=== PATIENT | male | born 1940 | race Caucasian/White ===

== ENCOUNTER → 2019-10-18 | Outpatient (CLI) | payer MEDICARE, BC ==
[~2019-10-18] MED LIST: ACET1TAB55 PO; BENA20TA8 PO; DONE10TA90 PO; FINA5TAB2 PO; JANT1TAB PO; JANT2.5T PO; MELA1TAB15 PO; MEMA10TA19 PO; MYRB50TA PO; PRESCAP PO; VITA400C49 PO; VITAD1000T PO
== END ==
LOC: M LABSMTC 12:24
PROVIDERS: ATTEND Anesthesiology
DX: Z01.818 Encounter for other preprocedural examination (principal); Z11.59 Encounter for screening for other viral diseases
CPT/HCPCS: C9803; U0003

== ENCOUNTER 2019-10-21 11:44 | Day surgery (SDC) | payer MEDICARE ==
[~2019-10-21] VITALS: Ht 188 cm; Wt 72.1 kg
[~2019-10-21 11:44] MED LIST changes: +D31000TA2 PO; +LIDOCAINE 2% 100MG/5ML SDV (FOR ANES.) As Ordered ONE; +NS 1,000 ML IV ONE; -VITAD1000T PO; +propofoL 200 MG/20 ML VIAL As Ordered ONE
--- NOTE | 2019-10-21 13:06 | ROOR ---
Patient Name: Bryson Hart Procedure Date: 10/21/2019 12:17 PM Date of : 1940 Age: 79 Room: [facility] Gender: Male Note Status: Finalized Procedure: Upper GI endoscopy Indications: Weight loss Providers: Kirby Pelaez MD Referring MD: GARO ZAYAS DO Requesting Provider: Medicines: Monitored Anesthesia Care Complications: No immediate complications. Procedure: Pre-Anesthesia Assessment: - Prior to the procedure, a History and Physical was performed, and patient medications and allergies were reviewed. The patient is competent. The risks and benefits of the procedure and the sedation options and risks were discussed with the patient. All questions were answered and informed consent was obtained. Patient identification and proposed procedure were verified by the physician, the nurse and the anesthesiologist in the procedure room. Mental Status Examination: alert and oriented. Airway Examination: normal oropharyngeal airway and neck mobility. Respiratory Examination: clear to auscultation. CV Examination: normal. Prophylactic Antibiotics: The patient does not require prophylactic antibiotics. Prior Anticoagulants: The patient has taken Coumadin (warfarin), last dose was 5 days prior to procedure. ASA Grade Assessment: II - A patient with mild systemic disease. After reviewing the risks and benefits, the patient was deemed in satisfactory condition to undergo the procedure. The anesthesia plan was to use monitored anesthesia care (MAC). Immediately prior to administration of medications, the patient was re-assessed for adequacy to receive sedatives. The heart rate, respiratory rate, oxygen saturations, blood pressure, adequacy of pulmonary ventilation, and response to care were monitored throughout the procedure. The physical status of the patient was re-assessed after the procedure. The Endoscope was introduced through the mouth, and advanced to the second part of duodenum. The upper GI endoscopy was accomplished without difficulty. The patient tolerated the procedure well. Findings: The Z-line was irregular and was found 22 cm from the incisors. Circumferential salmon-colored mucosa was present from 22 to 35 cm. Hiatal narrowing was identified at 40 cm. The maximum longitudinal extent of these esophageal mucosal changes was 12 cm in length. Biopsies were taken with a cold forceps for histology. Verification of patient identification for the specimen was done by the physician and nurse using the patient's name, date and medical record number. Estimated blood loss was minimal. A large hiatal hernia was present. Scattered mild inflammation characterized by erythema and granularity was found in the gastric antrum. Biopsies were taken with a cold forceps for Helicobacter pylori testing. The duodenal bulb, second portion of the duodenum and third portion of the duodenum were normal. Impression: - Z-line irregular, 22 cm from the incisors. 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 Biopsied. - Large hiatal hernia. - Gastritis. Biopsied. - Normal duodenal bulb, second portion of the duodenum and third portion of the duodenum. Recommendation: - Patient has a contact number available for emergencies. The signs and symptoms of potential delayed complications were discussed with the patient. Return to normal activities tomorrow. Written discharge instructions were provided to the patient. - High fiber diet. - Continue present medications. - Await pathology results. - Follow an antireflux regimen. 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 - Telephone GI clinic for pathology results in 2 weeks. - Return to primary care physician. Kirby Pelaez MD Kirby Pelaez MD 10/21/2019 1:06:34 PM Electronically signed by Kirby Pelaez MD Number of Addenda: 0 Note Initiated On: 10/21/2019 12:17 PM Estimated Blood Loss: Estimated blood loss was minimal.
--- NOTE | 2019-10-21 13:25 | ROOR ---
Patient Name: Bryson Hart Procedure Date: 10/21/2019 12:18 PM Date of : 1940 Age: 79 Room: [facility] Gender: Male Note Status: Finalized Procedure: Colonoscopy Indications: Weight loss Providers: Kirby Pelaez MD Referring MD: GARO ZAYAS DO Requesting Provider: Medicines: Monitored Anesthesia Care Complications: No immediate complications. Procedure: Pre-Anesthesia Assessment: - Prior to the procedure, a History and Physical was performed, and patient medications and allergies were reviewed. The patient is competent. The risks and benefits of the procedure and the sedation options and risks were discussed with the patient. All questions were answered and informed consent was obtained. Patient identification and proposed procedure were verified by the physician, the nurse and the anesthesiologist in the procedure room. Mental Status Examination: alert and oriented. Prophylactic Antibiotics: The patient does not require prophylactic antibiotics. Prior Anticoagulants: The patient has taken no previous anticoagulant or antiplatelet agents. ASA Grade Assessment: II - A patient with mild systemic disease. After reviewing the risks and benefits, the patient was deemed in satisfactory condition to undergo the procedure. The anesthesia plan was to use monitored anesthesia care (MAC). Immediately prior to administration of medications, the patient was re-assessed for adequacy to receive sedatives. The heart rate, respiratory rate, oxygen saturations, blood pressure, adequacy of pulmonary ventilation, and response to care were monitored throughout the procedure. The physical status of the patient was re-assessed after the procedure. The Colonoscope was introduced through the anus and advanced to the cecum, identified by appendiceal orifice and ileocecal valve. The colonoscopy was performed without difficulty. The patient tolerated the procedure well. The quality of the bowel preparation was good. The ileocecal valve, appendiceal orifice, and rectum were photographed. Scope insertion time was 3 minutes. Scope withdrawal time was 9 minutes. The total duration of the procedure was 14 minutes. Findings: The perianal and digital rectal examinations were normal. The terminal ileum appeared normal. A 9 mm polyp was found in the cecum. The polyp was sessile. The polyp was removed with a cold biopsy forceps. Resection and retrieval were complete. For hemostasis, one hemostatic clip was successfully placed. There was no bleeding at the end of the procedure. Verification of patient identification for the specimen was done by the physician and nurse using the patient's name, date and medical record number. Estimated blood loss was minimal. Multiple small and large-mouthed diverticula were found from sigmoid to ascending colon. There was no evidence of diverticular bleeding. Non-bleeding external and internal hemorrhoids were found during retroflexion. The hemorrhoids were medium-sized. There is no endoscopic evidence of mass or stricture in the entire colon. Impression: - The examined portion of the ileum was normal. - One 9 mm polyp in the cecum, removed with a cold biopsy forceps. Resected and retrieved. Clip was placed. - Severe diverticulosis from sigmoid to ascending colon. There was no evidence of diverticular bleeding. - Non-bleeding external and internal hemorrhoids. Recommendation: - Patient has a contact number available for emergencies. The signs and symptoms of potential delayed complications were discussed with the patient. Return to normal activities tomorrow. Written discharge instructions were provided to the patient. - High fiber diet. - Use FiberCon 1 tablet PO BID. - Await pathology results. - Resume Coumadin (warfarin) at prior dose today. Refer to primary physician for further adjustment of therapy. - Follow the recommendations as per the other procedure note. - Repeat colonoscopy is not recommended due to current age (66 years or older) for screening purposes and depending on clinical and functional status. - Telephone GI clinic for pathology results in 2 weeks. - Telephone GI clinic if symptomatic. - Return to primary care physician. Kirby Pelaez MD Kirby Pelaez MD 10/21/2019 1:24:41 PM Electronically signed by Kirby Pelaez MD Number of Addenda: 0 Note Initiated On: 10/21/2019 12:18 PM Estimated Blood Loss: Estimated blood loss was minimal.
[2019-10-21 13:36] VITALS: BP 154/71
== END 2019-10-21 13:38 | disposition home or self-care (01) ==
LOC: M OPP 11:44
PROVIDERS: ATTEND Internal Medicine Gastroenterology
DX: D12.6 Benign neoplasm of colon, unspecified (principal); K57.30 Diverticulosis of large intestine without perforation or abscess without bleeding; K64.8 Other hemorrhoids; R63.4 Abnormal weight loss; K22.8 Other specified diseases of esophagus; K44.9 Diaphragmatic hernia without obstruction or gangrene; K29.70 Gastritis, unspecified, without bleeding; Z79.899 Other long term (current) drug therapy; Z88.5 Allergy status to narcotic agent

== ENCOUNTER → 2019-11-10 | Outpatient (REF) | payer MEDICARE ==
[~2019-11-10] MED LIST changes: -LIDOCAINE 2% 100MG/5ML SDV (FOR ANES.) As Ordered ONE; -NS 1,000 ML IV ONE; -propofoL 200 MG/20 ML VIAL As Ordered ONE
[2019-12-06 09:00] LABS: INR 1.57; PROTHROMBIN TIME 19.1 SECONDS (11.8-14.0)
== END ==
LOC: M LAB REF 12:22
PROVIDERS: ATTEND Family Medicine
DX: Z51.81 Encounter for therapeutic drug level monitoring (principal); I87.2 Venous insufficiency (chronic) (peripheral); Z79.01 Long term (current) use of anticoagulants

== ENCOUNTER → 2020-02-21 | Outpatient (REF) | payer MEDICARE ==
[2020-02-21 14:28] LABS: BACTERIA, URINE AUTO NEGATIVE (NEGATIVE); RBC, URINE AUTO 7 /HPF (0-3); SQUAMOUS EPITHELIAL CELL UR AU 2 /HPF (0-6); WBC, URINE AUTO 1 /HPF (0-3)
== END ==
LOC: M LAB REF 13:05
PROVIDERS: ATTEND Physician Assistant Medical
DX: Z79.01 Long term (current) use of anticoagulants (principal); R31.29 Other microscopic hematuria

== ENCOUNTER → 2020-10-11 | Outpatient (CLI) | payer MEDICARE ==
[2020-10-11 17:29] LABS: BASO # 0.1 10^3/uL (0.0-0.2); BASO % 0.6 % (0.0-1.0); EOS # 0.2 10^3/uL (0.0-0.5); EOS % 2.8 % (0.0-3.0); HEMATOCRIT 43.3 % (42.0-52.0); HEMOGLOBIN 14.3 g/dl (13.5-17.5); LYMPH # 1.8 10^3/uL (1.5-5.0); LYMPH % 21.9 % (24.0-44.0); MEAN CORPUSCULAR HEMOGLOBIN 29.8 pg (27.0-33.0); MEAN CORPUSCULAR VOLUME 90.2 fl (80.0-96.0); MONO # 0.8 10^3/uL (0.0-0.8); MONO % 9.6 % (2.0-8.0); NEUTROPHILS # 5.4 10^3/uL (1.5-8.5); PLATELET COUNT, AUTOMATED 196 10^3/uL (150-450); WHITE BLOOD COUNT 8.3 10^3/uL (4.0-10.0)
[2020-10-11 17:32] LABS: APPEARANCE, URINE CLEAR (CLEAR); BACTERIA, URINE AUTO NEGATIVE (NEGATIVE); BILIRUBIN, URINE AUTO NEGATIVE (NEGATIVE); BLOOD, URINE BLOOD NEGATIVE (NEGATIVE); COLOR, URINE YELLOW (YELLOW); GLUCOSE, URINE (UA) AUTO NEGATIVE (NEGATIVE); KETONE, URINE AUTO NEGATIVE (NEGATIVE); LEUKOCYTE ESTERASE, URINE AUTO NEGATIVE (NEGATIVE); MUCUS, URINE SMALL (NEGATIVE); NITRITE, URINE AUTO NEGATIVE (NEGATIVE); PROTEIN, URINE AUTO NEGATIVE (NEGATIVE); RBC, URINE AUTO 6 /HPF (0-3); SPECIFIC GRAVITY URINE AUTO 1.014 (1.002-1.035); SQUAMOUS EPITHELIAL CELL UR AU 0 /HPF (0-6); UROBILINOGEN, URINE AUTO 0.2 mg/dL (0.0-2.0); WBC, URINE AUTO 1 /HPF (0-3)
[2020-10-11 17:57] LABS: ALT/SGPT 18 U/L (12-78); BILIRUBIN,TOTAL 0.6 MG/DL (0.2-1.0); BLOOD UREA NITROGEN 18 MG/DL (7-18); CALCIUM LEVEL 9.6 MG/DL (8.8-10.2); CARBON DIOXIDE LEVEL 29 MEQ/L (21-32); CHLORIDE LEVEL 103 MEQ/L (98-107); CREATININE FOR GFR 0.86 MG/DL (0.70-1.30); GLOMERULAR FILTRATION RATE > 60.0 (>35); GLUCOSE, FASTING 103 MG/DL (70-100); SODIUM LEVEL 141 MEQ/L (136-145)
[2020-10-13 17:08] LABS: G6PD2 4.67 x10E6/uL (4.14-5.80)
== END ==
LOC: M PLALAB 14:57
PROVIDERS: ATTEND Nurse Practitioner Family
DX: R63.4 Abnormal weight loss (principal)

== ENCOUNTER 2021-04-21 14:00 | Observation (INO) | payer MEDICARE ==
[~2021-04-21] VITALS: Ht 180.3 cm; Wt 68.0 kg
[~2021-04-21 14:00] MED LIST changes: +BENA-8 PO; -BENA20TA8 PO
[2021-04-21] MEDS ORDERED: CLON0.5T2 PO (14:47)
[2021-04-21] MEDS ORDERED: ELIQ2.5T PO (14:47)
[2021-04-21] MEDS ORDERED: VALA500T5 (14:47)
[2021-04-21] MEDS ORDERED: FAMO20TA5 PO (14:47)
[2021-04-21] MEDS ORDERED: NYST10CR (14:47)
[2021-04-21] MEDS ORDERED: NS 500 ML IV ONE (15:05)
[2021-04-21] MEDS ORDERED: PRESCAP PO (15:58)
[2021-04-21] MEDS ORDERED: MELA10CA PO (15:58)
[2021-04-21] MEDS ORDERED: QC A650T3 PO (15:58)
[2021-04-21] MEDS ORDERED: CVS1CAP2 PO (16:03)
[2021-04-21] MEDS ORDERED: RIVA1DIS2 TOP (16:03)
[2021-04-21] MEDS ORDERED: SENN-80 PO (16:03)
[2021-04-21] MEDS ORDERED: DOCU100C16 PO (16:03)
[2021-04-21] MEDS ORDERED: ZOLO50TA PO (16:03)
[2021-04-21] MEDS ORDERED: FIBE625T PO (16:03)
[2021-04-21] MEDS ORDERED: CLAR10CA3 PO (16:03)
[2021-04-21] MEDS ORDERED: HOME MED LIST COMPLETE! XX SCH (16:05)
[2021-04-21 17:08] LABS: BASO % 0.3 % (0.0-1.0); EOS # 0.2 10^3/uL (0.0-0.5); HEMATOCRIT 40.2 % (42.0-52.0); HEMOGLOBIN 13.5 g/dl (13.5-17.5); LYMPH % 13.3 % (24.0-44.0); MEAN CORPUSCULAR HEMOGLOBIN 30.1 pg (27.0-33.0); MEAN CORPUSCULAR HGB CONC 33.6 g/dl (32.0-36.5); MEAN CORPUSCULAR VOLUME 89.5 fl (80.0-96.0); MONO # 0.8 10^3/uL (0.0-0.8); MONO % 11.5 % (2.0-8.0); NEUTROPHILS # 5.2 10^3/uL (1.5-8.5); NEUTROPHILS % 71.5 % (36.0-66.0); PLATELET COUNT, AUTOMATED 160 10^3/uL (150-450); RED BLOOD COUNT 4.49 10^6/uL (4.30-6.10); WHITE BLOOD COUNT 7.3 10^3/uL (4.0-10.0)
[2021-04-21] MEDS ORDERED: GABAPENTIN 100 MG CAP PO ONE (17:15)
[2021-04-21 17:26] LABS: INR 1.13; PROTHROMBIN TIME 14.9 SECONDS (12.7-14.5)
[2021-04-21 17:53] LABS: ALBUMIN 3.8 GM/DL (3.2-5.2); ALT/SGPT 21 U/L (12-78); BILIRUBIN,DIRECT 0.1 MG/DL (0.0-0.2); BILIRUBIN,TOTAL 0.3 MG/DL (0.2-1.0); BLOOD UREA NITROGEN 14 MG/DL (7-18); CALCIUM LEVEL 9.1 MG/DL (8.8-10.2); CARBON DIOXIDE LEVEL 30 MEQ/L (21-32); CHLORIDE LEVEL 102 MEQ/L (98-107); CREATININE FOR GFR 0.79 MG/DL (0.70-1.30); GLOMERULAR FILTRATION RATE > 60.0 (>35); GLUCOSE, FASTING 101 MG/DL (70-100); POTASSIUM SERUM 3.8 MEQ/L (3.5-5.1); SODIUM LEVEL 139 MEQ/L (136-145); THYROID STIMULATING HORMONE 0.493 uIU/ML (0.358-3.740); TOTAL PROTEIN 6.5 GM/DL (6.4-8.2)
[2021-04-21 19:37] LABS: PARTIAL THROMBOPLASTIN TIME 32.4 SECONDS (25.9-37.0)
[2021-04-21] MEDS ORDERED: ACETAMINOPHEN TAB 650MG DOSE (2X325MG) PO PRN (20:45)
[2021-04-21] MEDS ORDERED: MOM 30ML SUSPENSION UDC PO PRN (20:45)
[2021-04-21] MEDS ORDERED: MAALOX 30 ML SUSP *UDC PO PRN (20:45)
[2021-04-21 23:50] VITALS: BP 153/73
[2021-04-22] MEDS: FAMOTIDINE 20 MG TAB PO SCH ×2 (00:14→21:42)
[2021-04-22] MEDS: MEMANTINE 5MG TABLET (NAMENDA) PO SCH ×3 (00:14→21:42)
[2021-04-22] MEDS: clonazePAM 0.5 MG TAB PO SCH ×2 (00:14→21:41)
[2021-04-22] MEDS: RAMELTEON 8 MG TAB (ROZEREM) PO SCH ×2 (00:14→21:42)
[2021-04-22] MEDS: valACYclovir HCL 500 MG TAB PO SCH ×4 (00:14→21:44)
[2021-04-22] MEDS: APIXABAN 2.5 MG TAB (ELIQUIS) PO SCH ×3 (00:15→21:42)
[2021-04-22] MEDS: FINASTERIDE 5 MG TAB PO SCH ×2 (00:15→21:41)
[2021-04-22] MEDS: SENNA 8.6 MG TAB (SENOKOT) PO SCH ×2 (00:15→21:45)
[2021-04-22] MEDS: SERTRALINE HCL 50 MG TAB PO SCH ×2 (00:15→21:42)
[2021-04-22 04:00] VITALS: BP 149/69
[2021-04-22 08:00] VITALS: BP 140/74
[2021-04-22] MEDS: FIBER-CON 625 MG TAB PO SCH (08:55)
[2021-04-22] MEDS: GABAPENTIN 100 MG CAP PO SCH ×3 (08:55→21:43)
[2021-04-22] MEDS: DOCUSATE SODIUM 100MG CAPSULE PO SCH (08:55)
[2021-04-22] MEDS: LORATADINE 10 MG TAB PO SCH (08:56)
[2021-04-22] MEDS: VITAMIN D 1,000 INTERNATIONAL UNITS TABLET PO SCH (08:56)
[2021-04-22 14:00] VITALS: BP 151/68
[2021-04-22 20:00] VITALS: BP 126/60
[2021-04-23 04:00] VITALS: BP 114/69
[2021-04-23] MEDS: valACYclovir HCL 500 MG TAB PO SCH ×3 (05:54→21:28)
[2021-04-23 06:34] LABS: HEMATOCRIT 41.3 % (42.0-52.0); HEMOGLOBIN 13.7 g/dl (13.5-17.5); MEAN CORPUSCULAR HEMOGLOBIN 29.8 pg (27.0-33.0); MEAN CORPUSCULAR HGB CONC 33.2 g/dl (32.0-36.5); MEAN CORPUSCULAR VOLUME 89.8 fl (80.0-96.0); PLATELET COUNT, AUTOMATED 155 10^3/uL (150-450); WHITE BLOOD COUNT 6.5 10^3/uL (4.0-10.0)
[2021-04-23 06:55] LABS: BLOOD UREA NITROGEN 17 MG/DL (7-18); CALCIUM LEVEL 8.9 MG/DL (8.8-10.2); CARBON DIOXIDE LEVEL 30 MEQ/L (21-32); CHLORIDE LEVEL 104 MEQ/L (98-107); CREATININE FOR GFR 0.81 MG/DL (0.70-1.30); GLOMERULAR FILTRATION RATE > 60.0 (>35); GLUCOSE, FASTING 98 MG/DL (70-100); POTASSIUM SERUM 4.2 MEQ/L (3.5-5.1); SODIUM LEVEL 140 MEQ/L (136-145)
[2021-04-23] MEDS: GABAPENTIN 100 MG CAP PO SCH ×3 (08:07→20:24)
[2021-04-23] MEDS: APIXABAN 2.5 MG TAB (ELIQUIS) PO SCH ×2 (08:07→20:24)
[2021-04-23] MEDS: DOCUSATE SODIUM 100MG CAPSULE PO SCH (08:07)
[2021-04-23] MEDS: MEMANTINE 5MG TABLET (NAMENDA) PO SCH ×2 (08:07→20:25)
[2021-04-23] MEDS: VITAMIN D 1,000 INTERNATIONAL UNITS TABLET PO SCH (08:07)
[2021-04-23] MEDS: FIBER-CON 625 MG TAB PO SCH (08:07)
[2021-04-23] MEDS: LORATADINE 10 MG TAB PO SCH (08:08)
[2021-04-23 14:00] VITALS: BP 130/60
[2021-04-23 20:00] VITALS: BP 137/66
[2021-04-23] MEDS: SENNA 8.6 MG TAB (SENOKOT) PO SCH (20:24)
[2021-04-23] MEDS: FAMOTIDINE 20 MG TAB PO SCH (20:24)
[2021-04-23] MEDS: RAMELTEON 8 MG TAB (ROZEREM) PO SCH (20:24)
[2021-04-23] MEDS: clonazePAM 0.5 MG TAB PO SCH (20:25)
[2021-04-23] MEDS: SERTRALINE HCL 50 MG TAB PO SCH (20:25)
[2021-04-23] MEDS: FINASTERIDE 5 MG TAB PO SCH (20:25)
[2021-04-24 04:00] VITALS: BP 115/56
[2021-04-24] MEDS: valACYclovir HCL 500 MG TAB PO SCH ×2 (06:17→14:34)
[2021-04-24 07:03] LABS: HEMATOCRIT 38.6 % (42.0-52.0); MEAN CORPUSCULAR HEMOGLOBIN 30.2 pg (27.0-33.0); MEAN CORPUSCULAR HGB CONC 33.7 g/dl (32.0-36.5); MEAN CORPUSCULAR VOLUME 89.8 fl (80.0-96.0); PLATELET COUNT, AUTOMATED 152 10^3/uL (150-450); WHITE BLOOD COUNT 6.3 10^3/uL (4.0-10.0)
[2021-04-24 07:31] LABS: BLOOD UREA NITROGEN 18 MG/DL (7-18); CALCIUM LEVEL 8.8 MG/DL (8.8-10.2); CARBON DIOXIDE LEVEL 29 MEQ/L (21-32); CHLORIDE LEVEL 107 MEQ/L (98-107); CREATININE FOR GFR 0.75 MG/DL (0.70-1.30); GLOMERULAR FILTRATION RATE > 60.0 (>35); GLUCOSE, FASTING 92 MG/DL (70-100); SODIUM LEVEL 141 MEQ/L (136-145)
[2021-04-24] MEDS ORDERED: ACET1TAB55 PO (07:47)
[2021-04-24] MEDS ORDERED: GABA-1171 PO (07:47)
[2021-04-24] MEDS ORDERED: VALA1TAB5 PO (07:49)
[2021-04-24] MEDS: GABAPENTIN 100 MG CAP PO SCH ×2 (08:21→14:34)
[2021-04-24] MEDS: LORATADINE 10 MG TAB PO SCH (08:21)
[2021-04-24] MEDS: FIBER-CON 625 MG TAB PO SCH (08:22)
[2021-04-24] MEDS: VITAMIN D 1,000 INTERNATIONAL UNITS TABLET PO SCH (08:22)
[2021-04-24] MEDS: DOCUSATE SODIUM 100MG CAPSULE PO SCH (08:22)
[2021-04-24] MEDS: MEMANTINE 5MG TABLET (NAMENDA) PO SCH (08:22)
[2021-04-24] MEDS: APIXABAN 2.5 MG TAB (ELIQUIS) PO SCH (08:22)
== END 2021-04-24 14:30 | disposition home health service (06) ==
LOC: M ED 14:00 → EDBD 14:00 → M ED INP 14:01 → M 4MAIN 23:25
PROVIDERS: ADMIT Family Medicine; ATTEND Internal Medicine
DX: B02.9 Zoster without complications (principal); R53.1 Weakness; U07.1 COVID-19; I10 Essential (primary) hypertension; Z79.01 Long term (current) use of anticoagulants; Z86.711 Personal history of pulmonary embolism; Z79.899 Other long term (current) drug therapy; G31.83 Neurocognitive disorder with Lewy bodies; N32.81 Overactive bladder; N40.0 Benign prostatic hyperplasia without lower urinary tract symptoms
CPT/HCPCS: 36415; 71045; 80048; 80076; 81001; 83605; 84443; 85025; 85027; 85610; 85730; 87040; 87798; 93005; 93041; 94760; 96374; 97116; 97161; 97530; 99284; G0378